=== PATIENT | female | born 1985 | race Caucasian/White ===

== ENCOUNTER 2020-01-07 15:16 | Outpatient (CLI) | payer OTHER, SELFPAY ==
--- NOTE | ~2020-01-07 | XR_ITS ---
EXAMINATION: XR shoulder RT min 2V EXAM DATE: 01/07/2020 15:45 INDICATION: Right shoulder pain, injury. TECHNIQUE: The following right shoulder projections obtained: frontal projection with internal rotati on, frontal projection with external rotation, Grashey, and axillary or Y-view (4+ views). There is no prior study for comparison. FINDINGS: No evidence of right shoulder rotator cuff calcific tendinosis. Unremarkable right edna ohumeral and acromioclavicular joints. There are no acute fractures or dislocations identified. Ther e is no subcutaneous gas. The soft tissue is unremarkable. There are no radiopaque foreign bodies. IMPRESSION: 1. Unremarkable right shoulder exam. Reviewed, dictated and finalized at location B. CLERK
== END 2020-01-07 15:17 | disposition home or self-care (01) ==
PROVIDERS: PCP Physician Assistant; Visit Provider Physician Assistant
DX: M25.511 Pain in right shoulder (principal)
CPT/HCPCS: 73030

== ENCOUNTER 2020-01-17 13:13 | Outpatient (CLI) | payer OTHER, SELFPAY ==
--- NOTE | ~2020-01-17 | US_ITS ---
EXAMINATION: US pelvic complete w TV DATE: 01/17/2020 15:14 INDICATION: Menorrhagia Comparison:No prior studies for comparison. TECHNIQUE: Multiple transabdominal and endovaginal sonographic images of the pelvis performed. FINDINGS: The uterus measures 8 x 4.7 x 6.1 cm. The endometrial complex measures 1.2 cm. The right ovary measures 3.6 x 2.2 x 3.2 cm and the left ovary measures 3.7 x 3.2 x 2.1 cm. There ar e small follicles in each ovary. There is no free fluid in the pelvis. There are no abnormal masses seen on either side. IMPRESSION: 1. Mild endometrial thickening measuring 12 mm. Reviewed, dictated and finalized at location B. TRICAL PERFORMER
== END 2020-01-17 13:14 | disposition home or self-care (01) ==
LOC: CHSIMG 13:16
PROVIDERS: PCP Physician Assistant
DX: N92.0 Excessive and frequent menstruation with regular cycle (principal)
CPT/HCPCS: 76830; 76856

== ENCOUNTER 2020-05-27 21:30 | Emergency (ER) | payer OTHER, SELFPAY ==
--- NOTE | ~2020-05-27 | XR_ITS ---
XR chest 2V DATE: 05/27/2020 22:20 INDICATION: Midsternal chest pain for 3 days TECHNIQUE: PA and lateral views COMPARISON: None FINDINGS: Normal heart size. No hilar or mediastinal enlargement. No pulmonary infiltrate or consolid ation, pleural effusion or pulmonary vascular congestion or pneumothorax. Included skeletal structures are unremarkable other than mild thoracic scoliosis and degenerative rodolfo nge. IMPRESSION: No active cardiopulmonary disease Reviewed, dictated and finalized at location A.
[2020-05-27 21:47] VITALS: BP 156/54; PULSE 84; RESP 20; TEMP 36.3; O2SAT 99
--- NOTE | 2020-05-27 22:00 | ECG_ITS ---
Measurements Intervals [place] Rate: 70 P: 29 SC: 137 QRS: 5 QRSD: 98 T: 16 QT: 397 QTc: 430 Interpretive Statements SINUS RHYTHM WITH SINUS ARRHYTHMIA BASELINE ARTIFACT- I, II, III, AVR, V1 NORMAL ECG Electronically Signed On 05-28-2020 7:04:30 CDT by Asa Boo D.O.
[2020-05-27 22:13] LABS: Basophils Absolute Auto 0.04 K/mm3 (0.00-0.10); Basophils Percent Auto 0.5 % (0.0-1.0); Eosinophils Absolute Auto 0.27 K/mm3 (0.02-0.50); Hematocrit 33.2 % (35.0-49.0); Hemoglobin 9.7 g/dL (12.0-15.0); Immature Granulocyte Absolute 0.02 K/mm3 (0.00-0.00); Immature Granulocyte Percent A 0.2 % (0.0-0.0); Lymphocytes Absolute Auto 3.76 K/mm3 (1.10-4.50); Lymphocytes Percent Auto 42.4 % (18.0-42.0); Mean Corpuscular HGB Conc 29.2 g/dL (32.0-36.0); Mean Corpuscular Hemoglobin 23.3 pg (27.0-31.0); Mean Corpuscular Volume 79.6 fL (78.0-102.0); Mean Platelet Volume 9.2 fl (9.2-11.8); Monocytes Absolute Auto 0.61 K/mm3 (0.10-0.90); Monocytes Percent Auto 6.9 % (2.0-11.0); Neutrophils Absolute Auto 4.2 K/mm3 (1.7-7.2); Platelet Count Result 310 K/mm3 (150-420); Red Blood Count 4.17 M/mm3 (4.20-5.40); White Blood Count 8.9 K/mm3 (4.8-10.8)
[2020-05-27 22:14] LABS: Add Urine Microscopic? YES; Appearance Urine Clear (Clear); Bilirubin Urine Negative (Negative); Blood Urine Negative (Negative); Color Urine Yellow (Yellow); Glucose Urine UA Negative (Negative); Ketones Urine Negative (Negative); Leukocyte Esterase Ur 2+ (Negative); Nitrate Urine Negative (Negative); Protein Urine Negative (Negative); Specific Grav Ur >= 1.030 (1.010-1.020); Urobilinogen Urine 0.2 mg/dL (0.2-1.0)
[2020-05-27 22:21] LABS: Squamous Epithelial Cell Urine Moderate /hpf (Few)
[2020-05-27 22:22] LABS: Bacteria Urine 1+ /hpf
[2020-05-27 22:29] LABS: BNP 24.3 pg/mL (0-100)
[2020-05-27 22:30] LABS: Alanine Aminotransferase 20 U/L (14-59); Albumin Level 3.1 g/dL (3.4-5.0); Alkaline Phosphatase 124 U/L (46-116); Anion Gap 9 mmol/L (8-16); Aspartate Amino Transferase 10 U/L (15-37); Bilirubin,Total 0.2 mg/dL (0.00-1.00); Blood Urea Nitrogen 17 mg/dL (7-18); Calcium 8.4 mg/dL (8.5-10.1); Carbon Dioxide 26 mmol/L (21-32); Chloride 105 mmol/L (98-108); Estimated CRCL calculation 100 ml/min; Estimated Glomerular Filt Rate 60; Glucose 101 mg/dL (70-99); Osmolality Calculated 291 mOsm/kg (285-295); Potassium 3.6 mmol/L (3.5-5.1); Sodium 140 mmol/L (136-145); Total Protein 7.2 g/dL (6.4-8.2); Troponin I 4.8 ng/L (0.00-60.4)
--- NOTE | 2020-05-27 22:45 | ED.GENADULT ---
HPI - General Adult General Chief complaint: Unspecified Stated complaint: feet,legs,ankle, heart racing. Time Seen by Provider: 05/27/20 22:00 Source: patient Mode of arrival: ambulatory Limitations: no limitations History of Present Illness HPI narrative: Patient states both of her legs have been mildly swollen. This has been developing over a few days. She comes in now because she is worried about this. Swelling is very mild. Swelling of ongoing, lasting for the last 3 days. Swelling is in both ankles. She has not noticed anything making this better or worse. She has no history of heart failure. She has no history of kidney disease. She has no history of liver disease. Swelling is the same in both ankles and very mild. Onset (ago): day(s) Related Data Home Medications Medication Instructions Recorded Confirmed amlodipine 5 mg PO DAILY 05/27/20 05/27/20 buspirone 5 mg PO BID 05/27/20 05/27/20 Allergies Allergy/AdvReac Type Severity Reaction Status Date / Time No Known Allergies Allergy Verified 05/27/20 21:47 Review of Systems Constitutional: Constitutional: Reports no additional constitutional complaints Eyes: Eyes: Reports no additional eye complaints ENT: Reports system reviewed and no additional complaints, except as documented Cardiovascular: Cardiovascular: Reports no additional cardiovascular complaints Respiratory: Respiratory: Reports no additional respiratory complaints Gastrointestinal: Gastrointestinal: Reports no additional gastrointestinal complaints Genitourinary: Genitourinary: Reports no additional female genitourinary complaints Musculoskeletal: Musculoskeletal: Reports no additional musculoskeletal complaints Integumentary/Breasts: Skin/Breast: Reports system reviewed and no additional complaints, except as docu Neurologic: Reports system reviewed and no additional complaints, except as documented Psychiatric: Psychiatric: Reports no additional psychiatric complaints Endocrine: Endocrine: Reports no additional endocrine complaints Hematologic/Lymphatic: Hematologic/Lymphatic: Reports no additional hematologic/lymphatic complaints Allergic/Immunologic: Allergic/Immunologic: Reports no additional allergic/immunologic complaints [facility] Past Medical History Medical History (Updated 05/27/20 @ 23:49 by Huber Allen MD) Anxiety disorder Polycystic ovarian syndrome Surgical History Surgical History (Updated 05/27/20 @ 23:50 by Huber Allen MD) No significant past surgical history Family History Family History (Updated 05/27/20 @ 23:50 by Huber Allen MD) Mother CAD (coronary artery disease) Social History Social History (Updated 05/27/20 @ 23:51 by Huber Allen MD) Smoking status: Never smoker Alcohol use details: very rare minimal use Substance use type: does not use 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 Gender identity (if verbalized by the patient): Female Exam Const: General: cooperative and healthy appearing Nutritional Appearance: well nourished and obese (morbidly obese) Orientation/consciousness: oriented to person, oriented to place and oriented to time Limitations: no limitations HENMT: Head: normal to inspection Ears: hearing grossly normal bilaterally, external ears normal and TM's normal bilaterally General nose exam: Normal external nose present and Normal nares present Face and sinus: normal facial exam Mouth: Yes Normal oral and palatal mucosa present and Yes oropharynx normal Eyes: Conjunctivae: conjunctivae normal Neck: Neck: normal visual inspection Chest: Chest palpation & inspection: normal inspection of the chest Resp: Effort & Inspection: normal respiratory effort and able to speak in complete sentences Auscultation: clear to auscultation bilaterally Cardio: Rate: regular rate Rhythm: regular rhythm GI: Inspection: normal to inspection (soft nontend
[2020-05-27 22:50] LABS: Thyroid Stimulating Hormone 3.47 uIU/mL (0.36-3.74)
[2020-05-27 23:03] VITALS: BP 148/72; PULSE 88; RESP 20; O2SAT 99
== END 2020-05-27 23:07 | disposition home or self-care (01) ==
PROVIDERS: Emergency Provider Emergency Medicine; PCP Physician Assistant
DX: N30.00 Acute cystitis without hematuria (principal)
CPT/HCPCS: 36415; 71046; 80053; 81001; 83880; 84443; 84484; 85025; 87077; 87086; 87088; 93005; 99283; 99284

== ENCOUNTER 2022-04-30 00:23 | Emergency (ER) | payer OTHER, SELFPAY ==
--- NOTE | ~2022-04-30 | CT_ITS ---
EXAMINATION: CT BRAIN W/O DATE: 04/30/2022 01:00 INDICATION: Dizziness TECHNIQUE: Computed tomography (CT) of the head was performed without intravenous contrast. The dose- length product was 605.33 mGy-cm. Automated exposure control and iterative reconstruction technique w ere employed. COMPARISON: No prior studies for comparison. FINDINGS: Normal brain parenchymal volume for age. Normal santillan-white differentiation. No acute intrac ranial hemorrhage, infarction, mass or mass effect. No ventriculomegaly or midline shift. Midline sagittal images demonstrate a normal corpus callosum, c raniovertebral junction and sella turcica. Basilar cisterns are patent. There is near complete opacification of the right maxillary sinus. Mastoids are pneumatized. IMPRESSION: 1. Right maxillary sinusitis. 2: No acute intracranial abnormality. Reviewed, dictated and finalized at location A.
[2022-04-30 00:25] VITALS: BP 140/85; PULSE 93; RESP 18; TEMP 36; O2SAT 98
--- NOTE | 2022-04-30 00:40 | ED.GENADULT ---
HPI - General Adult General Chief complaint: Dizziness Stated complaint: Dizziness Time Seen by Provider: 04/30/22 00:36 History of Present Illness HPI narrative: The patient is a 36-year-old woman with a history of morbid obesity 187 kg, anxiety, and PCOS. No abdominal operations. Does not smoke. Two days ago, the patient had watery diarrheal stools, 7 episodes, another 7 episodes yesterday. On 04/29/2022, the patient had no diarrhea. Nausea was present with the diarrheal stools and some abdominal discomfort, but the nausea and abdominal discomfort of both resolved. On 04/29/2022, the patient has had several dizzy spells with lightheadedness. No vertigo. No headache. She comes by EMS for evaluation of dizziness. She denies any fevers or chills or diaphoresis or URI symptoms such as cough rhinorrhea nasal congestion. No chest pain or abdominal pain. No UTI symptoms such as urgency frequency or dysuria or hematuria. No previous similar symptoms. Related Data Allergies Allergy/AdvReac Type Severity Reaction Status Date / Time No Known Allergies Allergy Verified 04/30/22 00:40 Review of Systems Review of Systems: All systems reviewed & are unremarkable except as noted in HPI and below Constitutional: Constitutional: Reports as per HPI, Reports no additional constitutional complaints, Denies chills, Denies excessive sweating, Denies fatigue, Denies fever(s), Denies headache(s) and Denies weakness Eyes: Eyes: Reports as per HPI, Reports no additional eye complaints, Denies change in vision and Denies photophobia ENT: Reports system reviewed and no additional complaints, except as documented, Reports as per HPI, Denies dysphagia, Denies vertigo, Reports dizziness, Denies headache(s), Denies lip swelling, Denies nasal congestion, Denies sore throat, Denies throat swelling and Denies tongue swelling Cardiovascular: Cardiovascular: Reports as per HPI, Reports no additional cardiovascular complaints, Denies chest pain, Denies syncope, Denies rapid heart rate and Denies dyspnea Respiratory: Respiratory: Reports as per HPI, Reports no additional respiratory complaints, Denies chest congestion, Denies cough, Denies dyspnea and Denies wheezing Gastrointestinal: Gastrointestinal: Reports as per HPI, Reports no additional gastrointestinal complaints, Reports abdominal pain, Denies constipation, Denies dysphagia, Reports diarrhea, Reports nausea and Denies vomiting Genitourinary: Genitourinary: Reports as per HPI, Denies hematuria, Denies urinary frequency, Denies dysuria, Denies urinary incontinence and Denies urinary urgency Musculoskeletal: Musculoskeletal: Reports no additional musculoskeletal complaints, Denies back pain, Denies myalgias, Denies arthralgias, Denies joint swelling and Denies numbness Integumentary/Breasts: Skin/Breast: Reports system reviewed and no additional complaints, except as docu, Denies pruritus, Denies erythema, Denies rash and Denies skin ulcer Neurologic: Reports system reviewed and no additional complaints, except as documented, Reports as per HPI, Denies confusion, Denies vertigo, Reports dizziness, Denies syncope, Denies headache(s), Denies focal weakness, Denies numbness and Denies weakness Psychiatric: Psychiatric: Reports as per HPI, Denies anxiety, Denies confusion, Denies depression, Denies homicidal ideation and Denies suicidal ideation Endocrine: Endocrine: Reports no additional endocrine complaints, Denies excessive sweating, Denies fatigue, Denies polydipsia and Denies polyuria Hematologic/Lymphatic: Hematologic/Lymphatic: Reports no additional hematologic/lymphatic complaints, Denies easy bleeding and Denies easy bruising Allergic/Immunologic: Allergic/Immunologic: Reports no additional allergic/immunologic complaints, Denies lip swelling, Denies throat swelling, Denies tongue swelling and Denies wheezing PMFSH Past Medical History Medical History A
[2022-04-30 00:50] LABS: Appearance Urine Clear (Clear); Bilirubin Urine Negative (Negative); Blood Urine 3+ (Negative); Color Urine Brown (Yellow); Glucose Urine UA 3+ (Negative); Ketones Urine Negative (Negative); Leukocyte Esterase Ur 2+ LEU/UL (Negative); Nitrate Urine Negative (Negative); Protein Urine Negative (Negative)
[2022-04-30 00:54] LABS: Pregnancy On Board Control Positive; Urine Pregnancy Test Negative
[2022-04-30 01:07] LABS: Add Urine Microscopic? YES; RBC Urine 21-50 /hpf (0-2)
[2022-04-30 01:08] LABS: Bacteria Urine 3+ /hpf; Squamous Epithelial Cell Urine Few /hpf (Few); Trichomonas Urine Present /hpf; WBC Urine 21-30 /hpf (0-3)
[2022-04-30] MEDS: MECLIZINE HCL 25 MG TABLET 50 MG PO (01:15)
[2022-04-30] MEDS: SODIUM CHLORIDE 0.9% IV 1,000 ML 999 ML IV CONT ×3 (01:17→04:05)
[2022-04-30 01:36] LABS: Basophils Absolute Auto 0.02 K/mm3 (0.00-0.10); Basophils Percent Auto 0.3 % (0.0-1.0); Eosinophils Percent Auto 2.7 % (1.0-6.0); Hematocrit 39.3 % (35.0-49.0); Hemoglobin 12.7 g/dL (12.0-15.0); Immature Granulocyte Absolute 0.02 K/mm3 (0.00-0.00); Immature Granulocyte Percent A 0.3 % (0.0-0.0); Lymphocytes Absolute Auto 2.22 K/mm3 (1.10-4.50); Lymphocytes Percent Auto 30.3 % (18.0-42.0); Mean Corpuscular HGB Conc 32.3 g/dL (32.0-36.0); Mean Corpuscular Hemoglobin 29.6 pg (27.0-31.0); Mean Corpuscular Volume 91.6 fL (78.0-102.0); Mean Platelet Volume 9.4 fl (9.2-11.8); Monocytes Absolute Auto 0.54 K/mm3 (0.10-0.90); Monocytes Percent Auto 7.4 % (2.0-11.0); Neutrophils Absolute Auto 4.3 K/mm3 (1.7-7.2); Platelet Count Result 227 K/mm3 (150-420); Red Blood Count 4.29 M/mm3 (4.20-5.40); Red Cell Distribution Width 14.3 % (11.6-14.4); White Blood Count 7.3 K/mm3 (4.8-10.8)
[2022-04-30] MEDS: metroNIDAZOLE 250 MG TABLET 500 MG PO (01:51)
[2022-04-30 01:56] LABS: Alanine Aminotransferase 18 U/L (14-59); Albumin Level 2.8 g/dL (3.4-5.0); Alkaline Phosphatase 113 U/L (46-116); Amylase 26 U/L (25-115); Anion Gap 7 mmol/L (8-16); Aspartate Amino Transferase 17 U/L (15-37); Bilirubin,Total 0.3 mg/dL (0.00-1.00); Blood Urea Nitrogen 8 mg/dL (7-18); Calcium 8.3 mg/dL (8.5-10.1); Carbon Dioxide 30 mmol/L (21-32); Chloride 102 mmol/L (98-108); Estimated CRCL calculation 110 ml/min; Estimated Glomerular Filt Rate 60; Glucose 249 mg/dL (70-99); Lipase 16 U/L (16-77); Magnesium 1.6 mg/dL (1.8-2.4); Osmolality Calculated 294 mOsm/kg (285-295); Potassium 3.4 mmol/L (3.5-5.1); Sodium 139 mmol/L (136-145); Total Protein 7.2 g/dL (6.4-8.2)
[2022-04-30 02:01] LABS: Lactic Acid Reflex 3.2 mmol/L (0.4-2.0)
[2022-04-30 02:07] VITALS: PULSE 82; RESP 18; O2SAT 96
[2022-04-30 02:30] VITALS: PULSE 91; RESP 20; O2SAT 97
[2022-04-30] MEDS: MAGNESIUM SULF 2 GM/WATER 50ML 2 GM/50 ML BAG IVPB (04:05)
[2022-04-30] MEDS: POTASSIUM BICARBONATE 25 MEQ TABEF 50 MEQ PO (04:11)
[2022-04-30 04:43] LABS: Reflex Lactic Acid Yes or No Add Lactic
[2022-04-30 05:43] LABS: Lactic Acid 1.8 mmol/L (0.4-2.0)
[2022-04-30 05:57] VITALS: BP 149/99; PULSE 85; RESP 18; O2SAT 95
--- NOTE | 2022-05-04 11:06 | PC.NURSE ---
LAB RESULT POSITIVE FOR TRICHOMONASTMA. RX FLAGYL AND KEFLEX GIVEN TO PT. PER DR BOOTHE. MEDICATIONS RX IS SUFFICIENT TREATMENT. CALL PLACED TO LEIGH IN [place]. VERIFIED PT PICKED UP MEDICATIONS. CALL PLACED TO PT TO NOTIFY OF RESULTS. UNABLE TO CONTACT X2 ATTEMPTS. UNABLE TO LEAVE MESSAGE. [phone]
== END 2022-04-30 06:14 | disposition home or self-care (01) ==
PROVIDERS: Emergency Provider Emergency Medicine; PCP Physician Assistant
DX: N39.0 Urinary tract infection, site not specified (principal); A59.9 Trichomoniasis, unspecified; R42 Dizziness and giddiness
CPT/HCPCS: 36415; 70450; 80053; 81001; 81025; 82150; 83605; 83690; 83735; 85025; 87086; 87088; 87661; 96361; 96365; 96367; 99284; A9270; J0696; J3475; J7030

== ENCOUNTER 2022-05-29 07:08 | Emergency (ER) | payer OTHER, SELFPAY ==
--- NOTE | ~2022-05-29 | XR_ITS ---
EXAMINATION: XR chest 1V portable INDICATION: Shortness of breath TECHNIQUE: Portable AP chest at 0742 hours COMPARISON: 05/27/2020 FINDINGS: The examination is limited by the patient's body habitus. The lungs are free of acute opac ities. No pleural effusion or pneumothorax. The cardiomediastinal silhouette is normal. IMPRESSION: 1. No acute cardiopulmonary abnormality. Reviewed, dictated and finalized at location A.
--- NOTE | 2022-05-29 07:14 | ECG_ITS ---
Measurements Intervals [place] Rate: 81 P: 54 KS: 144 QRS: 1 QRSD: 106 T: 31 QT: 399 QTc: 466 Interpretive Statements SINUS RHYTHM MINOR INTRAVENTRICULAR CONDUCTION ABNORMALITY BORDERLINE ECG COMPARED TO ECG 05/27/2020 22:21:39 NO DIFFERENCE Electronically Signed On 05-30-2022 10:46:49 CDT by Cesar Sullivan M.D.
[2022-05-29 07:15] VITALS: BP 164/102; PULSE 74; RESP 18; TEMP 36.3; O2SAT 98
[2022-05-29 07:20] VITALS: BP 164/102; PULSE 74; RESP 17; TEMP 36.3; O2SAT 97
--- NOTE | 2022-05-29 07:38 | ED.GENADULT ---
HPI - General Adult General Chief complaint: Dizziness Stated complaint: Difficulty breathing Time Seen by Provider: 05/29/22 07:13 History of Present Illness HPI narrative: Zee is a 37F with a PMH of PCOS, anxiety and depression that presented to the ED feeling woozy. . She woke up and felt lightheaded and had a little dyspnea. There was no CP, fevers, chills, cough, or palpitations. She felt this way with a UTI a few weeks ago but no urinary symptoms reported today. Related Data Home Medications Medication Instructions Recorded Confirmed amlodipine 5 mg tablet 5 mg PO DAILY 05/29/22 05/29/22 Allergies Allergy/AdvReac Type Severity Reaction Status Date / Time No Known Allergies Allergy Verified 05/29/22 07:19 Review of Systems Review of Systems: All systems reviewed & are unremarkable except as noted in HPI and below PMFSH Past Medical History Medical History Anxiety disorder Polycystic ovarian syndrome Surgical History Surgical History No significant past surgical history Family History Family History Mother CAD (coronary artery disease) Social History Social History Smoking status: Never smoker Alcohol use details: very rare minimal use Substance use type: does not use 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tion/consciousness: patient oriented x3 HENMT: Head: normal to inspection Ears: external ears normal Face/Nose/Sinus: Normal external nose present Face and sinus: normal facial exam Eyes: Conjunctivae: conjunctivae normal Pupils: Equal, round and reactive pupils present Neck: Neck: normal visual inspection Chest: Chest palpation & inspection: normal inspection of the chest Resp: Effort & Inspection: normal respiratory effort Auscultation: clear to auscultation bilaterally Cardio: Rate: regular rate Rhythm: regular rhythm GI: Inspection: distended GI Palp: Yes Soft to palpation, No Tenderness to palpation present (GI) and No Guarding due to palpation present (GI) : General: Yes bladder normal to palpation and No CVA tenderness Skin: General skin exam: normal color Rashes: no rashes Neuro: General: patient oriented x3 and moves all extremities Cranial nerves: Yes Nystagmus not present Speech: normal speech Gait exam (Neuro): Normal gait present Extrem: General: normal to inspection Psych: Mental Status: mental status grossly normal Course Course Emergency Course: EKG showed NSR with a rate of of 81, normal axis and no ST elevation or ectopy EXAMINATION: XR chest 1V portable INDICATION: Shortness of breath TECHNIQUE: Portable AP chest at 0742 hours COMPARISON: 05/27/2020 FINDINGS: The examination is limited by the patient's body habitus.? The lungs are free of acute opacities. No pleural effusion or pneumothorax. The cardiomediastinal silhouette is normal. IMPRESSION: 1. No acute cardiopulmonary abnormality. Labs were wnl with the exception of a mildly elevated glucose Vital Signs Vital signs: Vital Signs Temperature 97.4 F L 05/29/22 07:15 Pulse Rate 74 05/29/22 07:15 Respiratory Rate 18 05/29/22 07:15 Blood Pressure 164/102 H 05/29/22 07:15 Pulse Oximetry 98 05/29/22 07:15 Oxygen Delivery Room Air 05/29/22 07:15 Temperature 97.4 F L 05/29/22 07:20 Pulse Rate 74 05/29/22 07:20 Respiratory Rate 17 05/29/22 07:20 Blood Pressure 164/102 H 05/29/22 07:20 Pulse Oximetry 97 05/29/22 07:20 Oxygen Delivery Room Air 05/29/22 07:20 Medical Decision Making Vital Signs Vital Sign
[2022-05-29 07:53] LABS: Basophils Absolute Auto 0.03 K/mm3 (0.00-0.10); Basophils Percent Auto 0.4 % (0.0-1.0); Eosinophils Absolute Auto 0.27 K/mm3 (0.02-0.50); Eosinophils Percent Auto 3.5 % (1.0-6.0); Hematocrit 40.1 % (35.0-49.0); Immature Granulocyte Absolute 0.03 K/mm3 (0.00-0.00); Immature Granulocyte Percent A 0.4 % (0.0-0.0); Lymphocytes Absolute Auto 2.86 K/mm3 (1.10-4.50); Mean Corpuscular HGB Conc 32.4 g/dL (32.0-36.0); Mean Corpuscular Hemoglobin 29.8 pg (27.0-31.0); Mean Platelet Volume 9.2 fl (9.2-11.8); Monocytes Percent Auto 5.2 % (2.0-11.0); Neutrophils Absolute Auto 4.1 K/mm3 (1.7-7.2); Neutrophils Percent Auto 53.5 % (50.0-70.0); Platelet Count Result 249 K/mm3 (150-420); Red Blood Count 4.36 M/mm3 (4.20-5.40); Red Cell Distribution Width 13.5 % (11.6-14.4); White Blood Count 7.7 K/mm3 (4.8-10.8)
[2022-05-29 07:54] LABS: Bilirubin Urine Negative (Negative); Blood Urine Negative (Negative); Color Urine Light Yellow (Yellow); Glucose Urine UA Negative (Negative); Ketones Urine Negative (Negative); Leukocyte Esterase Ur 1+ LEU/UL (Negative); Nitrate Urine Negative (Negative); Protein Urine Trace (Negative); Urobilinogen Urine 0.2 mg/dL (0.2-1.0)
[2022-05-29 08:02] LABS: Add Urine Microscopic? YES; Appearance Urine Cloudy (Clear); RBC Urine 0-2 /hpf (0-2); Squamous Epithelial Cell Urine Many /hpf (Few)
[2022-05-29 08:03] LABS: Amorphous Sediment Urine Heavy; Bacteria Urine 2+ /hpf; Mucus Urine Heavy /lpf; Pregnancy On Board Control Positive; Urine Pregnancy Test Negative
[2022-05-29 08:06] LABS: Alanine Aminotransferase 22 U/L (14-59); Alkaline Phosphatase 116 U/L (46-116); Anion Gap 9 mmol/L (8-16); Aspartate Amino Transferase 15 U/L (15-37); Bilirubin,Total 0.3 mg/dL (0.00-1.00); Blood Urea Nitrogen 13 mg/dL (7-18); Calcium 8.3 mg/dL (8.5-10.1); Carbon Dioxide 30 mmol/L (21-32); Chloride 103 mmol/L (98-108); Estimated CRCL calculation 136 ml/min; Estimated Glomerular Filt Rate > 60; Glucose 173 mg/dL (70-99); Osmolality Calculated 298 mOsm/kg (285-295); Potassium 3.6 mmol/L (3.5-5.1); Sodium 142 mmol/L (136-145); Total Protein 7.3 g/dL (6.4-8.2)
[2022-05-29 08:33] VITALS: BP 152/105; PULSE 86; RESP 17; TEMP 36.8; O2SAT 100
--- NOTE | 2022-05-31 13:07 | PC.NURSE ---
FINAL URINE CULTURE: MIXED GENITAL BRUCE ISOLATED. NO ACTION NEEDED.
== END 2022-05-29 08:34 | disposition home or self-care (01) ==
PROVIDERS: Emergency Provider Family Medicine; PCP Physician Assistant
DX: R73.9 Hyperglycemia, unspecified (principal); R42 Dizziness and giddiness; F41.9 Anxiety disorder, unspecified; F32.A Depression, unspecified
CPT/HCPCS: 36415; 71045; 80053; 81001; 81025; 85025; 87086; 87088; 93005; 99283

== ENCOUNTER 2022-05-30 13:33 | Emergency (ER) | payer OTHER, SELFPAY ==
[2022-05-30 13:33] VITALS: BP 158/75; PULSE 70; RESP 18; TEMP 36.3; O2SAT 99
[2022-05-30 13:48] LABS: Glucose Point of Care 224 mg/dl (65-105)
--- NOTE | 2022-05-30 13:54 | ED.GENADULT ---
HPI - General Adult General Chief complaint: Nausea/Vomiting/Diarrhea Stated complaint: nausea Time Seen by Provider: 05/30/22 13:50 History of Present Illness HPI narrative: The patient is a 37-year-old woman with a history of PCOS, anxiety, hypertension, obesity, who has prediabetes. She was at one point on metformin but then her regular primary care provider has discontinued the metformin. She is on no medications for diabetes currently. She has a hemoglobin A1c pending to be drawn for tomorrow. She is to follow-up with her PCP tomorrow. She had an episode approximately 2 hours ago of nausea but no vomiting, no diarrhea. She had transient blurred vision and photophobia, both of which have resolved and improved. No abdominal pain. No headache. No vertigo. No dizziness. No URI symptoms. No UTI symptoms. No diarrhea. No other complaints. Her symptoms have improved. She just wanted to get checked. Related Data Home Medications Medication Instructions Recorded Confirmed amlodipine 5 mg tablet 5 mg PO DAILY 05/29/22 05/30/22 Allergies Allergy/AdvReac Type Severity Reaction Status Date / Time dinoprostone Allergy Unknown Verified 05/30/22 13:44 Review of Systems Review of Systems: All systems reviewed & are unremarkable except as noted in HPI and below Constitutional: Constitutional: Reports as per HPI, Reports no additional constitutional complaints, Denies chills, Denies excessive sweating, Denies fatigue, Denies fever(s), Denies headache(s) and Denies weakness Eyes: Eyes: Reports as per HPI, Reports no additional eye complaints, Reports change in vision (transient blurred vision, now resolved) and Reports photophobia (transient, now resolved.) ENT: Reports system reviewed and no additional complaints, except as documented, Reports as per HPI, Denies dysphagia, Denies vertigo, Denies dizziness, Denies headache(s), Denies lip swelling, Denies nasal congestion, Denies sore throat, Denies throat swelling and Denies tongue swelling Cardiovascular: Cardiovascular: Reports as per HPI, Reports no additional cardiovascular complaints, Denies chest pain, Denies syncope, Denies rapid heart rate and Denies dyspnea Respiratory: Respiratory: Reports as per HPI, Reports no additional respiratory complaints, Denies chest congestion, Denies cough, Denies dyspnea and Denies wheezing Gastrointestinal: Gastrointestinal: Reports as per HPI, Reports no additional gastrointestinal complaints, Denies abdominal pain, Denies constipation, Denies dysphagia, Denies diarrhea, Reports nausea and Denies vomiting Genitourinary: Genitourinary: Reports as per HPI, Denies hematuria, Denies urinary frequency, Denies dysuria, Denies urinary incontinence and Denies urinary urgency Musculoskeletal: Musculoskeletal: Reports no additional musculoskeletal complaints, Denies back pain, Denies myalgias, Denies arthralgias, Denies joint swelling and Denies numbness Integumentary/Breasts: Skin/Breast: Reports system reviewed and no additional complaints, except as docu, Denies pruritus, Denies erythema, Denies rash and Denies skin ulcer Neurologic: Reports system reviewed and no additional complaints, except as documented, Reports as per HPI, Denies confusion, Denies vertigo, Denies dizziness, Denies syncope, Denies headache(s), Denies focal weakness, Denies numbness and Denies weakness Psychiatric: Psychiatric: Reports as per HPI, Denies anxiety, Denies confusion, Denies depression, Denies homicidal ideation and Denies suicidal ideation Endocrine: Endocrine: Reports no additional endocrine complaints, Denies excessive sweating, Denies fatigue, Denies polydipsia and Denies polyuria Hematologic/Lymphatic: Hematologic/Lymphatic: Reports no additional hematologic/lymphatic complaints, Denies easy bleeding and Denies easy bruising Allergic/Immunologic: Allergic/Immunologic: Reports no additional allergic/immunologic complaints, Denies lip swelling, Denies throat swelli
[2022-05-30] MEDS: ONDANSETRON HCL ODT 4 MG TABLET 8 MG PO (14:11)
[2022-05-30] MEDS: metFORMIN HCL 500 MG TABLET 1000 MG PO (14:11)
[2022-05-30 14:20] VITALS: BP 148/72; PULSE 68; RESP 18; O2SAT 98
--- NOTE | 2022-05-30 14:34 | PC.NURSE ---
PT REPORTED NO DIZZINESS, BLURRED VISION, OR NAUSEA PRIOR TO DC.
== END 2022-05-30 14:20 | disposition home or self-care (01) ==
PROVIDERS: Emergency Provider Emergency Medicine; PCP Physician Assistant
DX: E11.65 Type 2 diabetes mellitus with hyperglycemia (principal); R11.0 Nausea; I10 Essential (primary) hypertension; Z79.4 Long term (current) use of insulin
CPT/HCPCS: 82948; 99283; A9270

== ENCOUNTER 2022-06-04 15:31 | Emergency (ER) | payer OTHER, SELFPAY ==
[2022-06-04 15:31] VITALS: BP 151/98; PULSE 72; RESP 18; TEMP 36.3; O2SAT 97
--- NOTE | 2022-06-04 15:38 | ED.EAR ---
HPI - Ear Problem General Chief complaint: Ear Stated complaint: ear fullness and pain Time Seen by Provider: 06/04/22 15:37 Source: patient and RN notes reviewed Mode of arrival: ambulatory Limitations: no limitations History of Present Illness Complaint: ear pain (for 2 days) Location: bilateral Duration: constant Severity: moderate Relieving factors: nothing Exacerbating factors: nothing Discharge from ear: Reports no Associated symptoms ear: rhinorrhea and other ( sinus congestion) Treatment prior to arrival: none Related Data Home Medications Medication Instructions Recorded Confirmed amlodipine 5 mg tablet 5 mg PO DAILY 05/29/22 06/04/22 sitagliptin phosphate 100 mg 100 mg PO DAILY 06/04/22 06/04/22 tablet (Januvia) Allergies Allergy/AdvReac Type Severity Reaction Status Date / Time dinoprostone Allergy Unknown Verified 06/04/22 15:38 Review of Systems Review of Systems: All systems reviewed & are unremarkable except as noted in HPI and below Constitutional: Constitutional: Denies chills and Denies fever(s) PMFSH Past Medical History Medical History (Updated 06/04/22 @ 15:51 by Huber Glass MD) Anxiety disorder Hypertension Morbid obesity Polycystic ovarian syndrome Type 2 diabetes mellitus Surgical History Surgical History No significant past surgical history Family History Family History Mother CAD (coronary artery disease) Social History Social History Smoking status: Never smoker Alcohol use details: very rare minimal use Substance use type: does not use 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 HENMT: Head: normal to inspection Ears: external ears normal, no periauricular adenopathy and TM abnormal with fluid behind the TM bilateral Face/Nose/Sinus: Normal external nose present and Abnormal mucous membranes and turbinates present boggy bilateral and erythematous bilateral Face and sinus: normal facial exam Mouth: Yes oropharynx normal and Yes moist mucous membranes Eyes: Conjunctivae: conjunctivae normal Pupils: Equal, round and reactive pupils present EOM: EOMs intact bilaterally Neck: Neck: normal visual inspection Resp: Effort & Inspection: normal respiratory effort Auscultation: clear to auscultation bilaterally Cardio: Rate: regular rate Rhythm: regular rhythm GI: GI Palp: Yes Soft to palpation and No Tenderness to palpation present (GI) Auscultation: normal bowel sounds Back/Spine/Pelvis: Cervical Spine: cervical ROM normal Thoracic/Lumbar Spine: thoraco-lumbar ROM normal Skin: General skin exam: normal color Rashes: no rashes Neuro: General: patient oriented x3, moves all extremities, no focal motor deficits and CN's II-XI intact bilaterally Speech: normal speech Gait exam (Neuro): Normal gait present Extrem: General: normal to inspection and no clubbing, cyanosis or edema Psych: Mental Status: mental status grossly normal Affect: normal affect Attitude: cooperative Medical Decision Making Differential Diagnosis Differential Diagnosis: I considered otitis media, eustachian tube dysfunction, sinusitis, viral upper respiratory infection. Discharge Plan Discharge Clinical Impression: Sinusitis Qualifiers: Sinusitis location: maxillary Chronicity: acute Recurrence: non-recurrent Qualified Code(s): J01.00 - Acute maxillary sinusitis, unspecified Patient Disposition: Home, Self-Care Condition: Stable Instruction
== END 2022-06-04 15:58 | disposition home or self-care (01) ==
PROVIDERS: Emergency Provider Emergency Medicine; PCP Physician Assistant
DX: J01.00 Acute maxillary sinusitis, unspecified (principal); I10 Essential (primary) hypertension; E11.9 Type 2 diabetes mellitus without complications
CPT/HCPCS: 99283

== ENCOUNTER 2022-06-09 22:05 | Emergency (ER) | payer OTHER, SELFPAY ==
[2022-06-09 22:05] VITALS: BP 146/85; PULSE 97; RESP 20; TEMP 36.7; O2SAT 98
--- NOTE | 2022-06-09 22:34 | ED.DIZZY ---
HPI - Dizziness General Chief Complaint: Dizziness Stated Complaint: Back Pain Time Seen by Provider: 06/09/22 22:17 Source: patient Mode of arrival: ambulatory Limitations: no limitations History of Present Illness HPI Narrative: This is a 37-year-old female with some morbidly obese that presents with a left arm feeling weak and some numbness and tingling with some mid lower back spasm. The patient recently started on blood pressure medication and has been feeling a little lightheaded she saw her primary earlier today, currently there is no neurological deficits the patient has equal muscle strength in both upper extremities with no neck pain no neck no numbness or tingling in her fingers currently no fever chills. MD elicited complaint: lightheadedness Related Data Home Medications Medication Instructions Recorded Confirmed sitagliptin phosphate 100 mg 100 mg PO DAILY 06/04/22 06/09/22 tablet (Januvia) losartan 100 mg tablet 100 mg PO DAILY 06/09/22 06/09/22 Allergies Allergy/AdvReac Type Severity Reaction Status Date / Time dinoprostone Allergy Unknown Verified 06/04/22 15:38 Review of Systems Review of Systems: All systems reviewed & are unremarkable except as noted in HPI and below PMFSH Past Medical History Medical History Anxiety disorder Hypertension Morbid obesity Polycystic ovarian syndrome Type 2 diabetes mellitus Surgical History Surgical History No significant past surgical history Family History Family History Mother CAD (coronary artery disease) Social History Social History Smoking status: Never smoker Alcohol use details: very rare minimal use Substance use type: does not use 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 Gender identity (if verbalized by the patient): Female Exam Const: General: healthy appearing Nutritional Appearance: well nourished Orientation/consciousness: patient oriented x3 Limitations: no limitations HENMT: Head: normal to inspection Eyes: Conjunctivae: conjunctivae normal Neck: Neck: normal visual inspection Chest: Chest palpation & inspection: normal inspection of the chest Resp: Effort & Inspection: normal respiratory effort Auscultation: clear to auscultation bilaterally Cardio: Rate: regular rate Rhythm: regular rhythm GI: Auscultation: normal bowel sounds Urinary Catheter: Urinary Catheter: patent and draining Back/Spine/Pelvis: Back: no CVA tenderness Skin: General skin exam: normal color Rashes: no rashes Wounds: no wounds Neuro: General: patient oriented x3 Cranial nerves: Yes Nystagmus not present Speech: normal speech Extrem: General: normal to inspection Psych: Mental Status: mental status grossly normal Course Course Emergency Course: Patient received a dose of p.o. Xanax and p.o. Toradol and after reassessment of her symptoms patient states that she is improved. Vital Signs Vital signs: Vital Signs Temperature 36.7 C 06/09/22 22:05 Pulse Rate 97 06/09/22 22:05 Respiratory Rate 20 06/09/22 22:05 Blood Pressure 146/85 H 06/09/22 22:05 Pulse Oximetry 98 06/09/22 22:05 Oxygen Delivery Room Air 06/09/22 22:05 Temperature 36.7 C 06/09/22 22:05 Pulse Rate 97 06/09/22 22:05 Respiratory Rate 20 06/09/22 22:05 Blood Pressure 146/85 H 06/09/22 22:05 Pulse Oximetry 98 06/09/22 22:05 Oxygen Delivery Room Air 06/09/22 22:05 Critical Care Time Critical Care Time Critical Care Time: No Discharge Plan Discharge Clinical Impression: Light-headedness, Left arm weakness Patient Disposition: Home, Self-Care Condition: Stable Instructions: Antibiotic Form, Paresthesia (ED), [place]
[2022-06-09] MEDS: KETOROLAC 10 MG TABLET PO (22:35)
[2022-06-09] MEDS: ALPRAZolam (*CRX) 0.5 MG TABLET PO (22:35)
[2022-06-09 22:59] VITALS: BP 140/78; PULSE 74; RESP 18; O2SAT 99
== END 2022-06-09 23:04 | disposition home or self-care (01) ==
PROVIDERS: Emergency Provider Emergency Medicine; PCP Physician Assistant
DX: R42 Dizziness and giddiness (principal); R53.1 Weakness; F41.9 Anxiety disorder, unspecified; I10 Essential (primary) hypertension; E11.9 Type 2 diabetes mellitus without complications
CPT/HCPCS: 99283; A9270

== ENCOUNTER 2022-06-16 00:49 | Emergency (ER) | payer OTHER, SELFPAY ==
[2022-06-16] VITALS (11 sets, daily range): BP systolic 102–158; BP diastolic 69–70; PULSE 55–68; RESP 13–20; TEMP 36.7; O2SAT 94–100
--- NOTE | 2022-06-16 00:50 | ECG_ITS ---
Measurements Intervals [place] Rate: 55 P: 46 NV: 129 QRS: -5 QRSD: 110 T: 13 QT: 437 QTc: 422 Interpretive Statements SINUS BRADYCARDIA WITH SINUS ARRHYTHMIA LOW QRS VOLTAGE IN PRECORDIAL LEADS BORDERLINE T WAVE ABNORMALITY- ANT/INF LEADS BASELINE ARTIFACT- I, II, III, AVR, AVL, AVF, V2-V3 BORDERLINE ECG COMPARED TO ECG 05/29/2022 07:29:18 SINUS BRADYCARDIA NOW PRESENT SINUS ARRHYTHMIA NOW PRESENT Electronically Signed On 06-16-2022 6:37:09 CDT by Asa Boo D.O.
--- NOTE | 2022-06-16 01:30 | ED.ANXIETY ---
HPI - Anxiety General Chief Complaint: Anxiety Stated Complaint: Anxiety Source: patient Mode of arrival: ambulatory Limitations: no limitations History of Present Illness HPI narrative: 37-year-old female with obesity, anxiety, hypertension, diabetes mellitus, PCOS presents to the ER with -- anxiety which started at 5:00 p.m. The patient is unable to relax. Patient denied any chest pain or shortness of breath. Patient denied any focal neuro deficits. Patient has been having these episodes off and on for the past few days. The patient had recent blood work and has had a normal TSH. MD complaint: anxiety Onset (ago): hour(s) ( Started 8 hours ago) Severity: mild Quality: constant Place: home History of similar episodes: Yes Provoking factors: none known Relieving factors: nothing Exacerbating factors: nothing Associated symptoms: denies other symptoms Related Data Home Medications Medication Instructions Recorded Confirmed sitagliptin phosphate 100 mg 100 mg PO DAILY 06/04/22 06/16/22 tablet (Januvia) losartan 100 mg tablet 100 mg PO DAILY 06/09/22 06/16/22 Allergies Allergy/AdvReac Type Severity Reaction Status Date / Time dinoprostone Allergy Unknown Verified 06/04/22 15:38 Review of Systems Review of Systems: All systems reviewed & are unremarkable except as noted in HPI and below Constitutional: Constitutional: Reports as per HPI and Reports no additional constitutional complaints Eyes: Eyes: Reports as per HPI and Reports no additional eye complaints ENT: Reports system reviewed and no additional complaints, except as documented and Reports as per HPI Cardiovascular: Cardiovascular: Reports as per HPI and Reports no additional cardiovascular complaints Respiratory: Respiratory: Reports as per HPI and Reports no additional respiratory complaints Gastrointestinal: Gastrointestinal: Reports as per HPI and Reports no additional gastrointestinal complaints Genitourinary: Genitourinary: Reports no additional female genitourinary complaints Musculoskeletal: Musculoskeletal: Reports no additional musculoskeletal complaints Integumentary/Breasts: Skin/Breast: Reports system reviewed and no additional complaints, except as docu Neurologic: Reports system reviewed and no additional complaints, except as documented Psychiatric: Psychiatric: Reports anxiety Comments: denies suicidal or homicidal ideation Endocrine: Endocrine: Reports no additional endocrine complaints and Reports as per HPI Hematologic/Lymphatic: Hematologic/Lymphatic: Reports no additional hematologic/lymphatic complaints and Reports as per HPI Allergic/Immunologic: Allergic/Immunologic: Reports no additional allergic/immunologic complaints and Reports as per HPI [facility] Past Medical History Medical History Anxiety disorder Hypertension Morbid obesity Polycystic ovarian syndrome Type 2 diabetes mellitus Surgical History Surgical History No significant past surgical history Family History Family History Mother CAD (coronary artery disease) Social History Social History Smoking status: Never smoker Alcohol use details: very rare minimal use Substance use type: does not use 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
[2022-06-16 01:40] LABS: Glucose Point of Care 110 mg/dl (65-105)
[2022-06-16] MEDS: ALPRAZolam (*CRX) 0.5 MG TABLET PO (01:42)
--- NOTE | 2022-06-16 02:05 | PC.NURSE ---
pt reports that after taking the xannax her anxiety has decreased from a 6 down to a 2
== END 2022-06-16 02:25 | disposition home or self-care (01) ==
PROVIDERS: Emergency Provider Internal Medicine Critical Care Medicine; PCP Physician Assistant
DX: F41.9 Anxiety disorder, unspecified (principal); R00.1 Bradycardia, unspecified; I10 Essential (primary) hypertension; E11.9 Type 2 diabetes mellitus without complications; E28.2 Polycystic ovarian syndrome
CPT/HCPCS: 82948; 93005; 99283; A9270

== ENCOUNTER 2022-06-19 08:54 | Emergency (ER) | payer OTHER, SELFPAY ==
--- NOTE | ~2022-06-19 | XR_ITS ---
EXAMINATION: XR thoracic spine 3V DATE: 06/19/2022 10:12 INDICATION: Mid and upper back pain. TECHNIQUE: 3 views of thoracic spine were obtained. COMPARISON: Chest 2 views 05/27/2020 FINDINGS: Bone alignment is normal. There is mild chronic anterior wedging of multiple midthoracic ve rtebral bodies associated with Schmorl's nodes. There is mildly decreased disc height at multiple lev els in mid and upper thoracic spine. There are endplate osteophytes at most levels. IMPRESSION: 1. Mild thoracic spondylosis. Reviewed, dictated and finalized at location A.
[2022-06-19 09:10] VITALS: BP 117/78; PULSE 87; RESP 16; TEMP 36.3; O2SAT 97
--- NOTE | 2022-06-19 09:34 | ED.GENADULT ---
HPI - General Adult General Chief complaint: Dizziness Stated complaint: back pain ,fatigue and dizzy Time Seen by Provider: 06/19/22 09:26 History of Present Illness HPI narrative: Jennifer is a 37F with a PMH of morbid obesity, chronic back pain, HTN, HLD and PCOS that presented with upper back pain as well as tight feeling muscles in her back and chest. It came on insidiously a few days ago and is not improving. There was no trauma or fall. There is no worsening in her pain when she moves her upper extremities. She denies chest pain, N/V, lightheadedness and diarrhea. Related Data Home Medications Medication Instructions Recorded Confirmed sitagliptin phosphate 100 mg 100 mg PO DAILY 06/04/22 06/19/22 tablet (Januvia) losartan 100 mg tablet 100 mg PO DAILY 06/09/22 06/19/22 buspirone 5 mg tablet 5 mg PO DAILY 06/19/22 06/19/22 ketorolac 10 mg tablet 10 mg PO DAILY 06/19/22 06/19/22 Allergies Allergy/AdvReac Type Severity Reaction Status Date / Time dinoprostone Allergy Unknown Verified 06/19/22 09:16 Review of Systems Review of Systems: All systems reviewed & are unremarkable except as noted in HPI and below PMFSH Past Medical History Medical History Anxiety disorder Hypertension Morbid obesity Polycystic ovarian syndrome Type 2 diabetes mellitus Surgical History Surgical History No significant past surgical history Family History Family History Mother CAD (coronary artery disease) Social History Social History Smoking status: Never smoker Alcohol use details: very rare minimal use Substance use type: does not use 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tion/consciousness: patient oriented x3 HENMT: Head: normal to inspection Ears: external ears normal Face/Nose/Sinus: Normal external nose present Eyes: Conjunctivae: conjunctivae normal Pupils: Equal, round and reactive pupils present EOM: EOMs intact bilaterally Neck: Neck: normal visual inspection Chest: Chest palpation & inspection: normal inspection of the chest Resp: Effort & Inspection: normal respiratory effort Auscultation: clear to auscultation bilaterally Cardio: Rate: regular rate Rhythm: regular rhythm GI: Inspection: distended GI Palp: Yes Soft to palpation, No Tenderness to palpation present (GI), No Guarding due to palpation present (GI) and No Rigid due to palpation Auscultation: normal bowel sounds : General: Yes bladder normal to palpation Back/Spine/Pelvis: Back: no CVA tenderness Other: TTP in the upper thoracic spine and the paraspinal musculature in the upper back was very hypertonic. Skin: General skin exam: normal color Neuro: General: patient oriented x3 and moves all extremities Extrem: General: normal to inspection Other: normal ROM and strength in the upper extremities Psych: Mental Status: mental status grossly normal Affect: normal affect Course Course Emergency Course: Ordered radiographs and cyclobenzaprine. EXAMINATION: XR thoracic spine 3V DATE: 06/19/2022 10:12 INDICATION: Mid and upper back pain. TECHNIQUE: 3 views of thoracic spine were obtained. COMPARISON: Chest 2 views 05/27/2020 FINDINGS: Bone alignment is normal. There is mild chronic anterior wedging of multiple midthoracic vertebral bodies associated with Schmorl's nodes. There is mildly decreased disc height at multiple levels in mid and upper thoracic spine. There are endplate osteophytes at most levels. IMPRESSION: 1. Mild thoracic spondylosis. Discharge Plan Dis
[2022-06-19] MEDS: ACETAMINOPHEN 500 MG TABLET 1000 MG PO (09:45)
[2022-06-19] MEDS: CYCLOBENZAPRINE HCL 10 MG TABLET PO (09:45)
[2022-06-19 10:25] VITALS: BP 121/74; PULSE 88; RESP 18; TEMP 36.6; O2SAT 98
[2022-06-30 14:45] LABS: Glucose Point of Care 119 mg/dl (65-105)
== END 2022-06-19 10:32 | disposition home or self-care (01) ==
PROVIDERS: Emergency Provider Family Medicine
DX: M54.6 Pain in thoracic spine (principal); E78.5 Hyperlipidemia, unspecified; I10 Essential (primary) hypertension; F41.9 Anxiety disorder, unspecified; E11.9 Type 2 diabetes mellitus without complications
CPT/HCPCS: 72072; 82948; 99283; A9270

== ENCOUNTER 2022-06-21 09:46 | Outpatient (RCR) | payer OTHER, SELFPAY ==
--- NOTE | 2022-06-21 10:56 | PTOPEVAL1 ---
Assessment and note entered by Sheri Persaud, PT Evaluation Information Assessment Status Evaluation Diagnosis right trapezius strain Onset 06/20/22 Subjective Information Jennifer Merchant reports that she started having pain between her shoulder blades about 2-3 weeks ago. She states the only thing she can think that she did was lift her son's bicycle overhead to put it in a vehicle. She has had x-rays and a CT scan that were negative. She has tried muscle relaxers, anti-inflammatories, and heat without relief. She was started on a new anti-inflammatory yesterday and was referred to PT. She notes the pain is not improving and will come and go for unknown reasons . 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 Reported Pain Level Pain Score 4: Self Report Assessment PT Clinical Summary Jennifer Merchant presents upper and mid back pain primarily between her shoulder blades that started after lifting her son's bicycle overhead 2-3 weeks ago. X-ray and CT scan are negative and she was diagnosed with a strain and sent to PT. She has difficulty performing stock chaser without taking breaks. She objectively demonstrates poor posture and weakness in left > right scapular and trunk muscles leading to poor stabilization and mechanics. She will benefit from skilled PT to address these deficits and return to her PLOF. Plan of Care Interventions Electrical Stimulation,Hot Pack/Cold Pack,Manual Therapy,Neuro Re-education,Patient/Caregiver Educati,Therapeutic Activities,Therapeutic Exercise PT Services Indicated Yes Treatment Frequency and 2 times a week for 6 visits Duration These treatments will address the objective and functional deficits as defined above. The patient will be advanced safely and appropriately in order for the patient to progress towards his/her prior level of function. Additional exercises will be introduced and as well as a comprehensive home exercise program upon discharge, if needed, ?to ensure carryover of functional gains achieved in the clinic. This treatment plan has been reviewed and agreement upon by the patient.
--- NOTE | 2022-09-20 16:46 | PCPTNOTE ---
09/20/22: Patient has not been seen in PT since 07/01/22. She will be discharged. -Sheri Persaud, PT
== END 2022-07-01 23:59 | disposition home or self-care (01) ==
LOC: CHSPT 09:46
PROVIDERS: PCP Physician Assistant; Visit Provider Physician Assistant
DX: S29.012D Strain of muscle and tendon of back wall of thorax, subsequent encounter (principal)
CPT/HCPCS: 97014; 97110; 97150; 97161; G0283

== ENCOUNTER 2022-06-29 22:27 | Emergency (ER) | payer OTHER, SELFPAY ==
[2022-06-29 22:29] VITALS: BP 155/101; PULSE 66; RESP 18; TEMP 36.3; O2SAT 99
--- NOTE | 2022-06-29 22:40 | ED.WEAKNESS ---
HPI - Weakness General Chief complaint: Weakness Stated complaint: Dehydrated Source: patient Mode of arrival: ambulatory Limitations: no limitations History of Present Illness HPI Narrative: 37-year-old female with a history of obesity, anxiety, hypertension, diabetes mellitus, dyslipidemia, PCOS was recently started on hydrochlorothiazide. She took her 1st dose of hydrochlorothiazide at 3:00 p.m.. She presents to the ER with a 5 hour history of -- generalized weakness. -- lightheadedness -- increased urine output MD Complaint: generalized weakness Onset (ago): hour(s) ( started 5 hours ago) Duration: constant Location: generalized Migration: none Relieving factors: other ( she drank Gatorade which made her feel better) Exacerbating factors: none Context: new medication Associated symptoms: denies other symptoms Related Data Home Medications Medication Instructions Recorded Confirmed sitagliptin phosphate 100 mg 100 mg PO DAILY 06/04/22 06/29/22 tablet (Januvia) buspirone 5 mg tablet 5 mg PO DAILY 06/19/22 06/29/22 ketorolac 10 mg tablet 10 mg PO DAILY 06/19/22 06/29/22 losartan 100 tablet 06/29/22 mg-hydrochlorothiazide 25 mg tablet Allergies Allergy/AdvReac Type Severity Reaction Status Date / Time dinoprostone Allergy Unknown Verified 06/19/22 09:16 Review of Systems Review of Systems: All systems reviewed & are unremarkable except as noted in HPI and below Constitutional: Constitutional: Reports as per HPI, Reports no additional constitutional complaints and Reports weakness Eyes: Eyes: Reports as per HPI and Reports no additional eye complaints ENT: Reports system reviewed and no additional complaints, except as documented and Reports as per HPI Cardiovascular: Cardiovascular: Reports as per HPI and Reports no additional cardiovascular complaints Respiratory: Respiratory: Reports as per HPI and Reports no additional respiratory complaints Gastrointestinal: Gastrointestinal: Reports as per HPI and Reports no additional gastrointestinal complaints Genitourinary: Genitourinary: Reports no additional female genitourinary complaints Musculoskeletal: Musculoskeletal: Reports no additional musculoskeletal complaints and Reports as per HPI Integumentary/Breasts: Skin/Breast: Reports system reviewed and no additional complaints, except as docu and Reports as per HPI Neurologic: Reports system reviewed and no additional complaints, except as documented and Reports as per HPI Psychiatric: Psychiatric: Reports no additional psychiatric complaints and Reports as per HPI Endocrine: Endocrine: Reports no additional endocrine complaints and Reports as per HPI Hematologic/Lymphatic: Hematologic/Lymphatic: Reports no additional hematologic/lymphatic complaints and Reports as per HPI Allergic/Immunologic: Allergic/Immunologic: Reports no additional allergic/immunologic complaints and Reports as per HPI PMFSH Past Medical History Medical History Anxiety disorder Hypertension Morbid obesity Polycystic ovarian syndrome Type 2 diabetes mellitus Surgical History Surgical History No significant past surgical history Family History Family History Mother CAD (coronary artery disease) Social History Social History Smoking status: Never smoker Alcohol use details: very rare minimal use Substance use type: does not use 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 Blood pressure is 155/101 Const: General: no acute distress Nutritional Appearance: well nourished and obese Orientation/consciousness: patient oriented x3 Limitatio
--- NOTE | 2022-06-29 22:47 | ECG_ITS ---
Measurements Intervals [place] Rate: 63 P: 36 CT: 130 QRS: -10 QRSD: 103 T: 15 QT: 428 QTc: 438 Interpretive Statements SINUS RHYTHM WITH MARKED SINUS ARRHYTHMIA INCOMPLETE RIGHT BUNDLE BRANCH BLOCK LOW QRS VOLTAGE IN PRECORDIAL LEADS BASELINE ARTIFACT- I, II, III, AVR, AVL, AVF, V1-V6 BORDERLINE ECG COMPARED TO ECG 06/16/2022 01:00:40 SINUS RHYTHM NOW PRESENT Electronically Signed On 06-30-2022 6:26:50 CDT by Asa Boo D.O.
[2022-06-29 23:07] LABS: Basophils Absolute Auto 0.03 K/mm3 (0.00-0.10); Basophils Percent Auto 0.3 % (0.0-1.0); Eosinophils Absolute Auto 0.26 K/mm3 (0.02-0.50); Hematocrit 42.5 % (35.0-49.0); Hemoglobin 13.7 g/dL (12.0-15.0); Immature Granulocyte Absolute 0.02 K/mm3 (0.00-0.00); Immature Granulocyte Percent A 0.2 % (0.0-0.0); Lymphocytes Absolute Auto 3.41 K/mm3 (1.10-4.50); Lymphocytes Percent Auto 38.8 % (18.0-42.0); Mean Corpuscular HGB Conc 32.2 g/dL (32.0-36.0); Mean Corpuscular Hemoglobin 29.6 pg (27.0-31.0); Mean Corpuscular Volume 91.8 fL (78.0-102.0); Mean Platelet Volume 9.9 fl (9.2-11.8); Monocytes Absolute Auto 0.44 K/mm3 (0.10-0.90); Neutrophils Absolute Auto 4.6 K/mm3 (1.7-7.2); Neutrophils Percent Auto 52.7 % (50.0-70.0); Platelet Count Result 252 K/mm3 (150-420); Red Blood Count 4.63 M/mm3 (4.20-5.40); Red Cell Distribution Width 13.2 % (11.6-14.4); White Blood Count 8.8 K/mm3 (4.8-10.8)
[2022-06-29 23:20] LABS: Alanine Aminotransferase 16 U/L (14-59); Albumin Level 3.4 g/dL (3.4-5.0); Alkaline Phosphatase 98 U/L (46-116); Anion Gap 7 mmol/L (8-16); Aspartate Amino Transferase 15 U/L (15-37); Bilirubin,Total 0.4 mg/dL (0.00-1.00); Blood Urea Nitrogen 9 mg/dL (7-18); Calcium 8.7 mg/dL (8.5-10.1); Carbon Dioxide 30 mmol/L (21-32); Chloride 102 mmol/L (98-108); Estimated CRCL calculation 116 ml/min; Estimated Glomerular Filt Rate > 60; Glucose 127 mg/dL (70-99); Osmolality Calculated 288 mOsm/kg (285-295); Potassium 3.6 mmol/L (3.5-5.1); Sodium 139 mmol/L (136-145); Total Protein 7.2 g/dL (6.4-8.2)
[2022-06-29 23:25] LABS: Troponin I 5.6 ng/L (0.00-60.4)
[2022-06-29 23:28] LABS: Pregnancy On Board Control Positive; Urine Pregnancy Test Negative
[2022-06-29 23:43] LABS: Appearance Urine Cloudy (Clear); Bilirubin Urine Negative (Negative); Blood Urine Negative (Negative); Color Urine Light Yellow (Yellow); Glucose Urine UA Negative (Negative); Ketones Urine Negative (Negative); Leukocyte Esterase Ur 1+ LEU/UL (Negative); Nitrate Urine Negative (Negative); Protein Urine Negative (Negative); Urobilinogen Urine 0.2 mg/dL (0.2-1.0)
[2022-06-29 23:47] LABS: Add Urine Microscopic? YES; RBC Urine None seen /hpf (0-2)
[2022-06-29 23:48] LABS: Bacteria Urine 1+ /hpf; Squamous Epithelial Cell Urine Few /hpf (Few)
[2022-06-30 00:06] VITALS: BP 127/80; PULSE 78; RESP 20; TEMP 36.7; O2SAT 96
--- NOTE | 2022-07-28 11:22 | PC.NURSE ---
FINAL URINE CULTURE RESULT: MIXED GENITAL BRUCE ISOLATED. NO ACTION NEEDED PER DR BARAHONA.
== END 2022-06-30 00:09 | disposition home or self-care (01) ==
PROVIDERS: Emergency Provider Internal Medicine Critical Care Medicine
DX: F41.9 Anxiety disorder, unspecified (principal); R53.1 Weakness; I10 Essential (primary) hypertension; E11.9 Type 2 diabetes mellitus without complications; E78.5 Hyperlipidemia, unspecified
CPT/HCPCS: 36415; 80053; 81001; 81025; 84484; 85025; 87086; 87088; 93005; 99284

== ENCOUNTER 2022-11-07 10:20 | Emergency (ER) | payer OTHER, SELFPAY ==
[2022-11-07] VITALS (7 sets, daily range): BP systolic 152–154; BP diastolic 92–98; PULSE 81–92; RESP 18–20; TEMP 36.7–37.2; O2SAT 94–98
--- NOTE | 2022-11-07 10:40 | ED.GENADULT ---
HPI - General Adult General Chief complaint: Upper Respiratory Infection Stated complaint: URI Time Seen by Provider: 11/07/22 10:21 History of Present Illness HPI narrative: 37-year-old female presenting with URI type symptoms. Patient states her symptoms started approximately 24 hours ago. She describes her symptoms as cough, nasal congestion, and runny nose. She denies any known sick contacts. Related Data Home Medications Medication Instructions Recorded Confirmed sitagliptin phosphate 100 mg 100 mg PO DAILY 06/04/22 11/07/22 tablet (Januvia) buspirone 10 mg tablet 10 mg PO TID 11/07/22 11/07/22 celecoxib 200 mg capsule 200 mg PO DAILY 11/07/22 11/07/22 empagliflozin 25 mg tablet 25 mg PO DAILY 11/07/22 11/07/22 (Jardiance) hydrochlorothiazide 25 mg tablet 25 mg PO DAILY 11/07/22 11/07/22 losartan 100 mg tablet 100 mg PO DAILY 11/07/22 11/07/22 Allergies Allergy/AdvReac Type Severity Reaction Status Date / Time dinoprostone Allergy Unknown Verified 11/07/22 10:32 [facility] Past Medical History Medical History Anxiety disorder Hypertension Morbid obesity Polycystic ovarian syndrome Type 2 diabetes mellitus Surgical History Surgical History No significant past surgical history Family History Family History Mother CAD (coronary artery disease) Social History Social History Smoking status: Never smoker Alcohol use details: very rare minimal use Substance use type: does not use 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 No increased work of breathing. Satting well in room air. Clear posterior oropharynx. All other systems otherwise unremarkable. Course Vital Signs Vital signs: Vital Signs Temperature 36.7 C 11/07/22 10:25 Pulse Rate 92 11/07/22 10:25 Respiratory Rate 20 11/07/22 10:25 Blood Pressure 154/98 H 11/07/22 10:25 Pulse Oximetry 96 11/07/22 10:25 Oxygen Delivery Room Air 11/07/22 10:25 Temperature 36.7 C 11/07/22 10:26 Pulse Rate 91 11/07/22 10:57 Respiratory Rate 18 11/07/22 10:57 Blood Pressure 154/98 H 11/07/22 10:26 Pulse Oximetry 94 11/07/22 10:57 Oxygen Delivery Room Air 11/07/22 10:25 Medical Decision Making MDM Narrative Medical decision making narrative: Patient test negative for COVID and flu. However, do suspect this is most likely a viral illness. her symptoms started less than 24 hours ago. No indication for further evaluation. She appears well. She is nontoxic appearing. Will have patient follow-up with her PCP. Vital Signs Vital Signs: Vital Signs Temperature 36.7 C 11/07/22 10:25 Pulse Rate 92 11/07/22 10:25 Respiratory Rate 20 11/07/22 10:25 Blood Pressure 154/98 H 11/07/22 10:25 Pulse Oximetry 96 11/07/22 10:25 Oxygen Delivery Room Air 11/07/22 10:25 Temperature 36.7 C 11/07/22 10:26 Pulse Rate 91 11/07/22 10:57 Respiratory Rate 18 11/07/22 10:57 Blood Pressure 154/98 H 11/07/22 10:26 Pulse Oximetry 94 11/07/22 10:57 Oxygen Delivery Room Air 11/07/22 10:25 Lab Data Labs: Lab Results 11/07/22 Range/Units 10:30 Influenza A (RT-PCR) Negative (Negative) Influenza B (RT-PCR) Negative (Negative) RSV (RT-PCR) Negative (Negative) SARS-CoV-2 RNA (RT-PCR) Negative (Negative) Discharge Plan Discharge Clinical Impression: Upper respiratory infection Qualifiers: URI type: unspecified viral URI Qualified Code(s): J06.9 - Acute upper respiratory infection, unspecified Patient Disposition: Home, Self-Care Condition: Stable Instru
[2022-11-07] MEDS: ALBUTEROL SULFATE (*SP) INHALER 2 PUFF INHALATION (10:50)
[2022-11-07 11:11] LABS: Influenza A QL RT-PCR Negative (Negative); Influenza B QL RT-PCR Negative (Negative); SARS-CoV-2 RNA PCR Negative (Negative)
[2022-11-07 11:12] LABS: RSV RNA, RT-PCR Negative (Negative)
== END 2022-11-07 11:54 | disposition home or self-care (01) ==
PROVIDERS: Emergency Provider Emergency Medicine; PCP Physician Assistant
DX: J06.9 Acute upper respiratory infection, unspecified (principal); I10 Essential (primary) hypertension; E11.9 Type 2 diabetes mellitus without complications; Z79.899 Other long term (current) drug therapy; Z20.822 Contact with and (suspected) exposure to COVID-19
CPT/HCPCS: 87637; 94640; 99283; A9270

== ENCOUNTER 2023-02-08 07:21 | Emergency (ER) | payer OTHER, SELFPAY ==
[2023-02-08 07:23] VITALS: BP 146/91; PULSE 92; RESP 18; TEMP 36.3; O2SAT 93
--- NOTE | 2023-02-08 07:33 | ED.URI ---
HPI - URI/Sore Throat General Chief Complaint: Upper Respiratory Infection Stated Complaint: unspecified Source: patient Mode of arrival: ambulatory Limitations: no limitations History of Present Illness HPI Narrative: 37-year-old female with a history of anxiety, hypertension, PCOS, diabetes mellitus presents to the ER with a 3 day history of -- nasal congestion -- sore throat -- nonproductive cough -- fever MD elicited complaint: fever, cough, sore throat and rhinorrhea Onset (ago): day(s) ( 3 days) Consistency: intermittent Severity: mild Description of mucous: clear Able to tolerate fluids by mouth: Yes Exacerbating factors: nothing Relieving factors: nothing Associated symptoms: denies other symptoms, fever, rhinorrhea and nasal congestion Treatments prior to arrival: none Related Data Home Medications Medication Instructions Recorded Confirmed sitagliptin phosphate 100 mg 100 mg PO DAILY 06/04/22 11/07/22 tablet (Januvia) buspirone 10 mg tablet 10 mg PO TID 11/07/22 11/07/22 celecoxib 200 mg capsule 200 mg PO DAILY 11/07/22 11/07/22 empagliflozin 25 mg tablet 25 mg PO DAILY 11/07/22 11/07/22 (Jardiance) hydrochlorothiazide 25 mg tablet 25 mg PO DAILY 11/07/22 11/07/22 losartan 100 mg tablet 100 mg PO DAILY 11/07/22 11/07/22 Allergies Allergy/AdvReac Type Severity Reaction Status Date / Time dinoprostone Allergy Unknown Verified 11/07/22 10:32 Review of Systems Review of Systems: All systems reviewed & are unremarkable except as noted in HPI and below Constitutional: Constitutional: Reports as per HPI and Reports no additional constitutional complaints Eyes: Eyes: Reports as per HPI and Reports no additional eye complaints ENT: Reports system reviewed and no additional complaints, except as documented, Reports nasal congestion and Reports sore throat Cardiovascular: Cardiovascular: Reports as per HPI and Reports no additional cardiovascular complaints Respiratory: Respiratory: Reports as per HPI and Reports no additional respiratory complaints Gastrointestinal: Gastrointestinal: Reports as per HPI and Reports no additional gastrointestinal complaints Genitourinary: Genitourinary: Reports no additional female genitourinary complaints Musculoskeletal: Musculoskeletal: Reports no additional musculoskeletal complaints and Reports as per HPI Integumentary/Breasts: Skin/Breast: Reports system reviewed and no additional complaints, except as docu and Reports as per HPI Neurologic: Reports system reviewed and no additional complaints, except as documented and Reports as per HPI Psychiatric: Psychiatric: Reports no additional psychiatric complaints and Reports as per HPI Endocrine: Endocrine: Reports no additional endocrine complaints and Reports as per HPI Hematologic/Lymphatic: Hematologic/Lymphatic: Reports no additional hematologic/lymphatic complaints and Reports as per HPI Allergic/Immunologic: Allergic/Immunologic: Reports no additional allergic/immunologic complaints and Reports as per HPI [facility] Past Medical History Medical History Anxiety disorder Hypertension Morbid obesity Polycystic ovarian syndrome Type 2 diabetes mellitus Surgical History Surgical History No significant past surgical history Family History Family History Mother CAD (coronary artery disease) Social History Social History Smoking status: Never smoker Alcohol use details: very rare minimal use Substance use type: does not use 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
[2023-02-08 08:04] LABS: Basophils Absolute Auto 0.02 K/mm3 (0.00-0.10); Basophils Percent Auto 0.3 % (0.0-1.0); Eosinophils Percent Auto 3.2 % (1.0-6.0); Hematocrit 39.9 % (35.0-49.0); Hemoglobin 13.2 g/dL (12.0-15.0); Immature Granulocyte Absolute 0.02 K/mm3 (0.00-0.00); Immature Granulocyte Percent A 0.3 % (0.0-0.0); Lymphocytes Absolute Auto 1.99 K/mm3 (1.10-4.50); Lymphocytes Percent Auto 31.7 % (18.0-42.0); Mean Corpuscular HGB Conc 33.1 g/dL (32.0-36.0); Mean Corpuscular Hemoglobin 31.3 pg (27.0-31.0); Mean Corpuscular Volume 94.5 fL (78.0-102.0); Mean Platelet Volume 8.9 fl (9.2-11.8); Monocytes Absolute Auto 0.58 K/mm3 (0.10-0.90); Monocytes Percent Auto 9.2 % (2.0-11.0); Neutrophils Absolute Auto 3.5 K/mm3 (1.7-7.2); Neutrophils Percent Auto 55.3 % (50.0-70.0); Platelet Count Result 250 K/mm3 (150-420); Red Blood Count 4.22 M/mm3 (4.20-5.40); Red Cell Distribution Width 13.1 % (11.6-14.4); White Blood Count 6.3 K/mm3 (4.8-10.8)
[2023-02-08 08:07] LABS: Appearance Urine Slightly Cloudy (Clear); Bilirubin Urine Negative (Negative); Blood Urine Negative (Negative); Color Urine Light Yellow (Yellow); Glucose Urine UA Negative (Negative); Ketones Urine Negative (Negative); Leukocyte Esterase Ur Negative LEU/UL (Negative); Nitrate Urine Negative (Negative); Protein Urine Negative (Negative); Specific Grav Ur 1.015 (1.010-1.020); Urobilinogen Urine 0.2 mg/dL (0.2-1.0)
[2023-02-08 08:10] LABS: SARS-CoV-2 RNA PCR Negative (Negative)
[2023-02-08 08:10] LABS: Add Urine Microscopic? NO
[2023-02-08 08:11] LABS: Influenza A QL RT-PCR Negative (Negative); Influenza B QL RT-PCR Negative (Negative); RSV RNA, RT-PCR Positive (Negative)
[2023-02-08 08:26] LABS: Alanine Aminotransferase 19 U/L (14-59); Albumin Level 3.2 g/dL (3.4-5.0); Alkaline Phosphatase 100 U/L (46-116); Anion Gap 6 mmol/L (8-16); Aspartate Amino Transferase 11 U/L (15-37); Bilirubin,Total 0.5 mg/dL (0.00-1.00); Blood Urea Nitrogen 16 mg/dL (7-18); Calcium 9.3 mg/dL (8.5-10.1); Carbon Dioxide 33 mmol/L (21-32); Chloride 95 mmol/L (98-108); Estimated Glomerular Filt Rate > 60; Glucose 177 mg/dL (70-99); Osmolality Calculated 283 mOsm/kg (285-295); Potassium 3.8 mmol/L (3.5-5.1); Sodium 134 mmol/L (136-145); Total Protein 7.9 g/dL (6.4-8.2)
== END 2023-02-08 08:45 | disposition home or self-care (01) ==
PROVIDERS: Emergency Provider Internal Medicine Critical Care Medicine; PCP Physician Assistant
DX: J06.9 Acute upper respiratory infection, unspecified (principal); B97.4 Respiratory syncytial virus as the cause of diseases classified elsewhere; I10 Essential (primary) hypertension; E11.9 Type 2 diabetes mellitus without complications; F41.9 Anxiety disorder, unspecified; Z20.822 Contact with and (suspected) exposure to COVID-19
CPT/HCPCS: 36415; 80053; 81003; 85025; 87637; 99283